=== PATIENT | female | born 1985 ===

== ENCOUNTER 2016-04-21 22:24 | Emergency (ER) | payer OTHER ==
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
--- NOTE | 2016-04-22 12:29 | ED MED RECONCILIATION SUMMARY ---
Patient: PETER CHANCE Medication Reconciliation Report [facility] VisitID: [id number] [place] [address] 30y, F Registration Date/Time: 04/21/2016 Weight: 83.9 kg Height/Length: 60 in. BMI: 36.1 ALLERGIES: Amoxicillin, Penicillins, Tramadol The patient's Home Medications are listed below: NONE. The source(s) of the original Home Medication information: Not obtained. The following Medications were given to the patient in the Emergency Department: None. The following Medications were prescribed to the patient: Take OTC medications according to label instructions. Available over the counter. -- Krysten Calles, P.A.-C Acetaminophen (available over the counter): take according to label instructions. -- Krysten Calles, P.A.-C Motrin (available over the counter): take according to label instructions. -- Krysten Calles, P.A.-C
--- NOTE | 2016-04-22 12:29 | ED MAR SUMMARY ---
..... Medication Administration Record [facility] [address] [place], [place] [id number] Patient: PETER CHANCE Visit ID: [id number] 30y, F Weight: 83.9 kg Height/Length: 60 in BMI: 36.1 ALLERGIES: Tramadol, Penicillins, Amoxicillin
--- NOTE | 2016-04-22 12:29 | ED MED RECONCILIATION SUMMARY ---
Patient: PETER CHANCE Medication Reconciliation Report [facility] VisitID: [id number] [place] [address] 30y, F Registration Date/Time: 04/21/2016 Weight: 83.9 kg Height/Length: 60 in. BMI: 36.1 ALLERGIES: Amoxicillin, Penicillins, Tramadol The patient's Home Medications are listed below: NONE. The source(s) of the original Home Medication information: Not obtained. The following Medications were given to the patient in the Emergency Department: None. The following Medications were prescribed to the patient: Take OTC medications according to label instructions. Available over the counter. -- Krysten Calles, P.A.-C Acetaminophen (available over the counter): take according to label instructions. -- Krysten Calles, P.A.-C Motrin (available over the counter): take according to label instructions. -- Krysten Calles, P.A.-C
--- NOTE | 2016-04-22 12:29 | ED MAR SUMMARY ---
..... Medication Administration Record [facility] [address] [place], [place] [id number] Patient: PETER CHANCE Visit ID: [id number] 30y, F Weight: 83.9 kg Height/Length: 60 in BMI: 36.1 ALLERGIES: Tramadol, Penicillins, Amoxicillin
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
== END 2016-04-22 | disposition home or self-care (01) ==
LOC: ED SRH 22:24
DX: T23.152A Burn of first degree of left palm, initial encounter (principal); S61.211A Laceration without foreign body of left index finger without damage to nail, initial encounter; X08.8XXA Exposure to other specified smoke, fire and flames, initial encounter; W26.0XXA Contact with knife, initial encounter; Y93.9 Activity, unspecified; Y92.009 Unspecified place in unspecified non-institutional (private) residence as the place of occurrence of the external cause; Y99.9 Unspecified external cause status

== ENCOUNTER → 2016-07-25 | Emergency (ER) | payer OTHER ==
--- NOTE | 2016-07-25 19:48 | ED NURSING NOTES ---
Clinical Report - Nurses [address] [place] [address] 07/25/2016 18:20 Patient: PETER CHANCE DISPOSITION / DISCHARGE The patient left the Emergency Department before triage. --19:47 Shakira Colbert Locked/Released at 07/25/2016 19:47 by Shakira Colbert
--- NOTE | 2016-07-25 19:48 | ED MED RECONCILIATION SUMMARY ---
Patient: PETER CHANCE Medication Reconciliation Report [facility] VisitID: [id number] [address] [place] [address] 30y, F Registration Date/Time: 07/25/2016 Weight: (not available) Height/Length: (not available) BMI: (not available) ALLERGIES: The patient's Home Medications are listed below: Not obtained. The source(s) of the original Home Medication information: Not obtained. The following Medications were given to the patient in the Emergency Department: None. The following Medications were prescribed to the patient: None.
--- NOTE | 2016-07-25 19:48 | ED MAR SUMMARY ---
..... Medication Administration Record [facility] [address] [place], [place] [id number] Patient: PETER CHANCE Visit ID: [id number] 30y, F Weight: (not available) Height/Length: (not available) BMI: (not available) ALLERGIES:
--- NOTE | 2016-07-25 19:48 | ED NURSING NOTES ---
Clinical Report - Nurses [address] [place] [address] 07/25/2016 18:20 Patient: PETER CHANCE DISPOSITION / DISCHARGE The patient left the Emergency Department before triage. --19:47 Shakira Colbert Locked/Released at 07/25/2016 19:47 by Shakira Colbert
--- NOTE | 2016-07-25 19:48 | ED MED RECONCILIATION SUMMARY ---
Patient: PETER CHANCE Medication Reconciliation Report [facility] VisitID: [id number] [address] [place] [place] [address] 30y, F Registration Date/Time: 07/25/2016 Weight: (not available) Height/Length: (not available) BMI: (not available) ALLERGIES: The patient's Home Medications are listed below: Not obtained. The source(s) of the original Home Medication information: Not obtained. The following Medications were given to the patient in the Emergency Department: None. The following Medications were prescribed to the patient: None.
--- NOTE | 2016-07-25 19:48 | ED MAR SUMMARY ---
..... Medication Administration Record [facility] [address] [place], [place] [id number] Patient: PETER CHANCE Visit ID: [id number] 30y, F Weight: (not available) Height/Length: (not available) BMI: (not available) ALLERGIES:
== END ==
LOC: ED SRH 18:20
DX: Z53.21 Procedure and treatment not carried out due to patient leaving prior to being seen by health care provider (principal)